=== PATIENT | male | born 1960 | race Caucasian/White ===

== ENCOUNTER 2019-09-19 20:09 | Inpatient (IN) ==
[2019-09-19] MEDS ORDERED: DUONEB (A & A) INH ONE ×2 (20:36→21:00)
[2019-09-19 20:51] LABS: BASO# 0.02 X1000 (0.0-0.2); BASO% 0.2 % (0.0-0.8); HEMATOCRIT 42.4 % (42.0-52.0); HEMOGLOBIN 13.9 g/dL (14.0-18.0); IMM GRAN# 0.04 X1000 (0.0-0.04); IMM GRAN% 0.4 % (0.0-0.5); LYMPH# 1.16 X1000 (1.2-3.4); LYMPH% 11.5 % (20.5-51.1); MCH 28.4 PG (27-31); MCHC 32.8 g/dL (33-37); MCV 86.7 FL (81-99); MONO# 0.37 X1000 (0.11-0.59); MONO% 3.7 % (1.7-9.3); MPV 11.1 FL (7.4-10.4); NEUT# 8.49 X1000 (1.4-6.5); NEUT% 84.2 % (42.2-75.2); PLT 181 X1000 (130-400); RBC 4.89 XMIL (4.7-6.1); RDW 13.7 % (11.5-14.5); WBC 10.08 X1000 (4.8-10.8)
[2019-09-19] MEDS ORDERED: DUONEB (A & A) ONE (20:51)
[2019-09-19] MEDS ORDERED: NS 1,000 ML IV ONE ×2 (20:55→22:06)
[2019-09-19 21:03] LABS: INR 1.1; PROTIME 14.8 Seconds (11.0-16.0)
[2019-09-19] MEDS ORDERED: TYLENOL PO ONE (21:03)
[2019-09-19 21:04] LABS: PTT 37.3 Seconds (22.3-41.8)
[2019-09-19 21:08] LABS: ALBUMIN 3.7 g/dL (3.5-5.0); CALCIUM 8.2 mg/dL (8.8-10.2); CREATININE 1.8 mg/dL (0.7-1.2); MAGNESIUM 1.8 mg/dL (1.5-2.7); POTASSIUM 3.3 mmol/L (3.5-5.1); TOTAL BILIRUBIN 0.3 mg/dL (0.20-1.00); TOTAL PROTEIN 7.2 g/dL (6.3-8.3)
[2019-09-19 21:15] LABS: BE 4.6 mmoll (-3.0-3.0); BLOOD TYPE ARTERIAL; HCO3-(ACT) 28.3 mmoll (20.0-26.0); O2(CT) 18.1 mL/dL (15.0-23.0); PCO2(98.6) 42 mmHg (35-45); PO2(98.6) 52 mmHg (60-100); SAMPLE BLOOD; SAO2 91.6 % (95.0-100.0); THB 14.5 g/dL (11.5-17.4); pH(98.6) 7.45 (7.35-7.45)
[2019-09-19 21:18] LABS: ALLEN TEST YES; MODALITY VENTIMASK
[2019-09-19 21:27] LABS: CK INDEX 1.2 (0.0-2.5); CK-MB 14.33 ng/mL (0.0-5.0)
[2019-09-19] MEDS ORDERED: LASIX IV ONE (21:32)
[2019-09-19] MEDS: ZOSYN 4.5 GM in NS 100 ML IV ONE ×2 (21:42)
[2019-09-19] MEDS ORDERED: VANCOMYCIN 1 GM/NS 1 GM/250 ML IVPB IV ONE (21:42)
[2019-09-19] MEDS ORDERED: TAMIFLU PO ONE (22:03)
[2019-09-19 22:18] LABS: HEMOGLOBIN A1C 7.5 % (4.8-6.0)
--- NOTE | 2019-09-19 22:34 | Diag Imaging Result Doc PS360 ---
CHEST-1 VIEW - 09/19/2019 INDICATION: SOB COMPARISON: 04/14/2015 FINDINGS: There is extensive bilateral alveolar infiltrate. This is worst in the lung bases. Heart size is normal. No pneumothorax or pleural effusion. IMPRESSION: Extensive bilateral pneumonia. Electronically signed by Edmond Howard 09/19/2019 10:32 PM
--- NOTE | 2019-09-19 23:03 | PROVIDER DOCUMENTATION ---
This chart was entered by Belen Cohen Scribe, acting as scribe for Vivian Benitez MD. HPI-Respiratory General - General Chief Complaint: Shortness of Breath Stated Complaint: SOB Time Seen by Provider: 09/19/19 20:23 Source: patient Allergies/Adverse Reactions: Patient Allergies Allergy/AdvReac Type Severity Reaction Status Date / Time Penicillins Allergy Unknown Verified 09/19/19 20:20 Home Medications: Home Medication List Medication Instructions Recorded Confirmed Last Taken Type Clonidine [Catapres] 0.1 mg PO HS 08/10/14 09/19/19 04/13/15 21:00 History 0.1 mg Metoprolol [Lopressor] 50 mg PO HS 08/10/14 09/19/19 04/13/15 21:00 History 50 mg Paroxetine HCl [Paxil] 20 mg PO HS 08/10/14 04/14/15 04/13/15 21:00 History 20 mg Phenytoin [Dilantin] 300 mg PO QHS 08/10/14 04/14/15 08/10/14 History Clonazepam [Klonopin] 1 mg PO TID 04/14/15 09/19/19 04/13/15 21:00 History Aripiprazole 15 mg PO DAILY 09/19/19 09/19/19 Unknown History Dextroamphetamine/Amphetamine 20 mg PO TID 09/19/19 09/19/19 Unknown History [Dextroamp-Amphetamin 20 mg Tab] Duloxetine [Cymbalta] 60 mg PO BID 09/19/19 09/19/19 Unknown History Gabapentin 600 mg PO TID 09/19/19 09/19/19 Unknown History Insulin Glargine,Hum.rec.anlog 100 units SUBQ QHS 09/19/19 09/19/19 Unknown History [Lantus Solostar] Insulin Glulisine [Apidra Solostar] 25 units SQ AC 09/19/19 09/19/19 Unknown History - History of Present Illness-Resp Nature of Presenting Problem: pt is a 59 yowm presenting w/ to er w/cc sob starting tonight w/cough, moore, fever, sore throat, cp w/cough and vomiting 2-3x today. pt tested positive for flu today. pt was 74% o2 sat in room. no dizziness. no copd, PNU, asthma hx. has hx of htn, dm, neuropathy and depression. allergy to penicillin. pt was sick with flu. Severity in ED: reports: mild Onset/Duration: reports: this evening (sob unsure when other symptoms started) Timing: reports: still present Exposure: reports: unknown cause Cough Quality/Degree: reports: mild Modifying Factors: improves with: nothing Associated Symptoms: reports: chest pain/soreness, cough, flu-like symptoms, headache, short of breath Recently seen or treated by another doctor?: Yes (+flu today) Review of Systems - Adult - REVIEW OF SYSTEMS - ADULT Constitutional: reports: see HPI, fever. denies: chills, night sweats Eyes: reports: no symptoms reported Ears, Nose, Mouth & Throat: reports: see HPI, throat pain. denies: ear discharge, ear pain, sinus problem Cardiovascular: reports: see HPI, chest pain (w/cough) Respiratory: reports: see HPI, cough, shortness of breath. denies: hemoptysis, pleurisy, wheezing Gastrointestinal: reports: see HPI, vomiting. denies: abdominal pain, hematemesis, diarrhea Genitourinary: reports: no symptoms reported Musculoskeletal: reports: no symptoms reported Integumentary: reports: no symptoms reported Neurological: reports: see HPI, headache/migraines. denies: ataxia, dizziness/vertigo, loss of balance Psychiatric: reports: no symptoms reported Endocrine: reports: no symptoms reported Hematologic/Lymphatic: reports: no symptoms reported Allergic/Immunologic: reports: no symptoms reported All Other Systems: Reviewed and Negative Past History - Adult - PAST MEDICAL HISTORY-ADULT Review of Records: reports: Nursing Assessment Review, Medications Reviewed, Social history reviewed & non-contributory. Major Childhood Illnesses: reports: denies history Cardiovascular: reports: HTN, hyperlipidemia Respiratory: reports: sleep apnea Gastrointestinal: reports: denies history Obstetrical/Gynecological: reports: denies history Genitourinary: reports: denies history Musculoskeletal: reports: denies history Neurological: reports: Seizures/Epilepsy Endocrine/Immune: reports: Diabetes Other Conditions: reports: denies history - PRIOR SURGERIES/PROCEDURES Surgical/Procedure History: reports: back/neck (neck) - IMMUNIZATION STATUS Childhood Immunizations: See Nurse Assessment Flu Vaccine: See Nurse Assessment - FAMILY HISTORY Family History: reviewed, not pertinent - SOCIAL HISTORY Smoking: other (former smoker) Substance Use: none/never Physical Exam-General - PHYSICAL EXAM-ADULT Initial Vital Signs Reviewed: Yes - CONSTITUTIONAL General Appearance: alert, no apparent distress. negative: lethargic, slow to respond, obtunded - EYES Eyes: PERRL/EOMI, pink conjunctivae - HEAD, EARS, NOSE, MOUTH & THROAT HENMT: normocephalic/atraumatic. negative: moist mucous membranes (dry muc mem) - NECK Neck: non-tender, full range of motion, supple, normal inspection - RESPIRATORY Respiratory: chest non-tender, lungs clear, normal breath sounds, no pleuratic chest pain, no respiratory distress, no accessory muscle use. negative: stridor, wheezing, dull on percussion, prolonged expiration - CARDIOVASCULAR Cardiovascular: normal peripheral pulses, no edema, no gallop, no JVD, no murmur , tachycardia. negative: regular rate, rhythm, bradycardia, friction rub, irregularly irregular - GASTROINTESTINAL (ABDOMEN) Abdominal Exam: normal bowel sounds, non tender, soft, no organomegaly, no pulsatile mass. negative: guarding, rigid, rebound, tenderness - MUSCULOSKELETAL Back Exam: normal inspection Extremity: normal range of motion, non-tender, normal inspection Peripheral Pulses: radial (R): 2+, radial (L): 2+ - SKIN Integumentary: normal color, normal turgor, warm/dry - NEUROLOGIC Neurologic: grossly normal, no motor/sensory deficits - PSYCHIATRIC Psych/Mental Status: normal mood/affect, normal thought content, normal thought process, oriented x 3 - HEART Score HEART Score: History: Moderately Suspicious HEART Score: ECG: Non-Specific Repolarization Disturbance/LBBB/PM HEART Score: Age: 45-65 Years HEART Score: Risk Factors for Atherosclerotic Disease: 1 or 2 Risk Factors HEART Score: Troponin: 1-3x Normal Limit Total HEART Score:: 5 Progress - PLAN OF CARE/RESULTS Progress/Plan/Lab Results: Vital Signs - 8 hr 09/19/19 20:16 09/19/19 20:46 09/19/19 21:18 Temperature 102.5 F H Pulse Rate 107 H 99 H 106 H Respiratory Rate 20 26 H 28 H Blood Pressure 224/110 216/97 O2 Sat by Pulse Oximetry 74 L 87 L Laboratory Results - last 24 hr 09/19/19 09/19/19 09/19/19 20:27 20:27 20:27 WBC 10.08 RBC 4.89 Hgb 13.9 L Hct 42.4 MCV 86.7 MCH 28.4 MCHC 32.8 L RDW Std Deviation 13.7 Plt Count 181 MPV 11.1 H Immature Gran % (Auto) 0.4 Neut % (Auto) 84.2 H Lymph % (Auto) 11.5 L [place] % (Auto) 3.7 Eos % (Auto) 0.0 Baso % (Auto) 0.2 Immature Gran # (Auto) 0.04 Neut # (Auto) 8.49 H Lymph # (Auto) 1.16 L [place] # (Auto) 0.37 Eos # (Auto) 0.00 Baso # (Auto) 0.02 PT INR PTT (Actin FS) Specimen Type Sample Site pH pCO2 pO2 HCO3 Base Excess Oxyhemoglobin ABG O2 Sat (Calculated) ABG O2 Saturation ABG Carboxyhemoglobin ABG Methemoglobin Bill Test A-a O2 Difference Total Hemoglobin Lactate Blood Gas Modality FiO2 % Sodium 139 Potassium 3.3 L Chloride 98 Carbon Dioxide 24 L Anion Gap 18 BUN 21 Creatinine 1.8 H Estimated GFR/1.73 m2 39 BUN/Creatinine Ratio 12 Glucose 229 H Estimat Average Glucose Hemoglobin A1c Calculated Osmolality 288 Calcium 8.2 L Magnesium 1.8 Total Bilirubin 0.30 AST 58 H ALT 26 Alkaline Phosphatase 89 Creatine Kinase 1182 H Creatine Kinase Index 1.2 CK-MB (CK-2) 14.33 H Troponin T Jma-A-Gcrezphyemg Pept 2586 H Total Protein 7.2 Albumin 3.7 Globulin 4.0 Albumin/Globulin Ratio 1.0 Plasma Lactate Total Phenytoin 09/19/19 09/19/19 09/19/19 20:27 20:27 20:27 WBC RBC Hgb Hct MCV MCH MCHC RDW Std Deviation Plt Count MPV Immature Gran % (Auto) Neut % (Auto) Lymph % (Auto) [place] % (Auto) Eos % (Auto) Baso % (Auto) Immature Gran # (Auto) Neut # (Auto) Lymph # (Auto) [place] # (Auto) Eos # (Auto) Baso # (Auto) PT 14.8 INR 1.10 PTT (Actin FS) 37.3 Specimen Type Sample Site pH pCO2 pO2 HCO3 Base Excess Oxyhemoglobin ABG O2 Sat (Calculated) ABG O2 Saturation ABG Carboxyhemoglobin ABG Methemoglobin Bill Test A-a O2 Difference Total Hemoglobin Lactate Blood Gas Modality FiO2 % Sodium Potassium Chloride Carbon Dioxide Anion Gap BUN Creatinine Estimated GFR/1.73 m2 BUN/Creatinine Ratio Glucose Estimat Average Glucose Hemoglobin A1c Calculated Osmolality Calcium Magnesium Total Bilirubin AST ALT Alkaline Phosphatase Creatine Kinase Creatine Kinase Index CK-MB (CK-2) Troponin T 0.294 H Gwu-I-Dolacfcekxz Pept Total Protein Albumin Globulin Albumin/Globulin Ratio Plasma Lactate 3.9 H Total Phenytoin 09/19/19 09/19/19 09/19/19 20:27 20:27 20:50 WBC RBC Hgb Hct MCV MCH MCHC RDW Std Deviation Plt Count MPV Immature Gran % (Auto) Neut % (Auto) Lymph % (Auto) [place] % (Auto) Eos % (Auto) Baso % (Auto) Immature Gran # (Auto) Neut # (Auto) Lymph # (Auto) [place] # (Auto) Eos # (Auto) Baso # (Auto) PT INR PTT (Actin FS) Specimen Type ARTERIAL Sample Site L RADIAL pH 7.45 pCO2 42 pO2 52 L HCO3 28.3 H Base Excess 4.6 H Oxyhemoglobin 89.0 L* ABG O2 Sat (Calculated) 18.1 ABG O2 Saturation 91.6 L ABG Carboxyhemoglobin 1.90 ABG Methemoglobin 1.0 Bill Test YES A-a O2 Difference 252.0 Total Hemoglobin 14.5 Lactate 2.00 Blood Gas Modality VENTIMASK FiO2 % 50.0 Sodium Potassium Chloride Carbon Dioxide Anion Gap BUN Creatinine Estimated GFR/1.73 m2 BUN/Creatinine Ratio Glucose Estimat Average Glucose 169 Hemoglobin A1c 7.5 H Calculated Osmolality Calcium Magnesium Total Bilirubin AST ALT Alkaline Phosphatase Creatine Kinase Creatine Kinase Index CK-MB (CK-2) Troponin T Cug-A-Ixmuldbaffz Pept Total Protein Albumin Globulin Albumin/Globulin Ratio Plasma Lactate Total Phenytoin < 0.80 L Orders Category Date Time Status Admit - [facility] Routine AdmDCTranf 09/19/19 21:45 Active Cardiac Monitoring DIRECTED Care 09/19/19 20:34 Active IV Insertion ORDERED Care 09/19/19 20:34 Completed Notify MD of + Sepsis Screen NOW Care 09/19/19 20:34 Active Notify Physician As Ordered Care 09/19/19 20:34 Active Update & Confirm Home Medicati ROUTINE Care 09/19/19 21:48 Active CHEST-1 VIEW [RAD] Stat Exams 09/19/19 20:34 Completed A1C HGB W EST AVG GLUCOSE [CHEM] Routine Lab 09/19/19 20:27 Completed ABG [RESP] Routine Lab 09/19/19 20:50 Completed BLOOD CULTURE [BLDCUL] Stat Lab 09/19/19 20:27 Results CBC WITH DIFF [HEME] Stat Lab 09/19/19 20:27 Completed CK PROFILE [SP CHEM] Stat Lab 09/19/19 20:27 Completed COMPREHENSIVE METABOLIC PANEL [CHEM] Stat Lab 09/19/19 20:27 Completed Dilantin [PHENYTOIN] [TDM] Stat Lab 09/19/19 20:27 Completed LACTATE, PLASMA [CHEM] Lab 09/19/19 20:27 Completed LACTATE, PLASMA [CHEM] Lab 09/19/19 23:45 Uncollected LACTATE, PLASMA [CHEM] Lab 09/20/19 02:45 Uncollected MAGNESIUM [CHEM] Stat Lab 09/19/19 20:27 Completed PRO B-NATRIURETIC PEPTIDE Stat Lab 09/19/19 20:27 Completed PROTIME WITH INR [COAG] Stat Lab 09/19/19 20:27 Completed PTT [COAG] Stat Lab 09/19/19 20:27 Completed TROPONIN T Stat Lab 09/19/19 20:27 Completed URINALYSIS W/POSS RFLX CULT [URINALYSIS] Stat Lab 09/19/19 22:39 Ordered 0.9% Sodium Chloride Inj [Ns] 1,000 ml Med 09/19/19 20:55 Discontinued IV 999 mls/hr 0.9% Sodium Chloride Inj [Ns] 1,000 ml Med 09/19/19 22:06 Active IV 999 mls/hr Acetaminophen [Tylenol] Med 09/19/19 21:03 Discontinued 1,000 mg PO NOW ONE Albuterol 2.5MG/Ipratrop 0.5MG [Duoneb (A & A)] Med 09/19/19 20:36 Discontinued 3 ml INH NOW ONE Albuterol 2.5MG/Ipratrop 0.5MG [Duoneb (A & A)] Med 09/19/19 21:00 Discontinued 6 ml INH NOW ONE Albuterol 2.5MG/Ipratrop 0.5MG [Duoneb (A & A)] Med 09/19/19 20:51 Discontinued 9 ml .ROUTE .STK-MED ONE Furosemide [Lasix] Med 09/19/19 21:32 Discontinued 40 mg IV NOW ONE Hydralazine [Apresoline] Med 09/19/19 22:06 Active 10 mg IV Q6H PRN PRN Morphine Med 09/19/19 22:07 Active 2 mg IV Q4H PRN PRN Oseltamivir [Tamiflu] Med 09/20/19 09:00 Active 75 mg PO BID Oseltamivir [Tamiflu] Med 09/19/19 22:03 Discontinued 75 mg PO NOW ONE Piperacillin/Tazobactam [Zosyn] 4.5 gm Med 09/19/19 21:42 Discontinued 0.9% Sodium Chloride Inj [Ns] 100 ml IV NOW Vancomycin 1 gm/Ns Med 09/19/19 21:42 Discontinued 1 gm in 250 ml IV NOW Aerosol Treatments Routine Oth 09/19/19 20:36 Completed Aerosol Treatments Routine Oth 09/19/19 21:00 Completed Aerosol Treatments Stat Oth 09/19/19 20:36 Completed Aerosol Treatments Stat Oth 09/19/19 21:00 Completed Oxygen Device Stat Oth 09/19/19 20:34 Completed Transfer/Admit Order [TRANSFER] Routine Transfer 09/19/19 21:45 Ordered Result Diagrams: 09/19/19 20:27 09/19/19 20:27 - REASSESSMENT Reassessment #1 Time Reassessed: 21:25 Status: improving - EKG 1 Time of EKG reading by physician:: 20:30 EKG Read and Signed by:: Vivian Benitez EKG Interpretation (*Must complete 3 of following elements*): Abnormal Rate: 99 (possible left atrial enlargement ) Rhythm: NSR [place]: normal QRS: normal SC Interval: normal ST Wave: non-specific ST changes (Marked ST abnormality, possible anterior subendoca) Comments: nonspecific intraventricular block - XRAY 1 XRAY Study: Chest Impression: Abnormal (bilateral infiltrates and Pulmonary edema), See EMR Report - CONSULTS/PCP/HOSPITALIST Notification #1 *Consult/PCP/Hospitalist*: d/w Dr Salvador Time Discussed: 21:45 Consult Disposition: Admit Departure - Departure Date of Disposition Decision: 09/19/19 Time of Disposition Decision: 22:04 DIAGNOSIS: Sepsis, Pneumonia, CHF (congestive heart failure), HOMERO (acute kidney injury), Influenza, Elevated troponin Disposition: ADMITTED INPATIENT 09 Certified Medical Emergency: Emergent Condition: Stable Referrals and Follow-Ups: Balaji Grey MD [Primary Care Provider] - - Critical Care Note This patient required my direct & personal management of CC.: Yes Total Time (mins): 40 Critical Care Statement: This patient required my direct personal management to treat or rule out processes, the absence of which, could potentiallly result in sudden, clinically significant life or limb threatening deterioration. Attestation - Physician/ GABRIELLE Attestation Patient care was provided by Advanced Practice Provider:: No The physician spent face to face time with patient:: Yes Advanced Practice Provider documentation review:: Supervising physician onsite and consulted in the evaluation and care of this patient. The physician did have a face to face encounter with the patient. This chart was documented by the indicated scribe, (Belen Cohen, Mohan) and accurately reflects the services I performed and decisions made by me, Vivian Benitez MD, as attested by the provider's signature.
[2019-09-19] MEDS: APRESOLINE IV PRN (23:07)
[2019-09-20] MEDS ORDERED: LEVAQUIN 750 MG in NS 150 ML IV SCH (01:00)
[2019-09-20] MEDS: HEPARIN SUBQ SCH ×4 (01:05→23:59)
[2019-09-20] MEDS: MORPHINE IV PRN ×4 (01:57→15:26)
[2019-09-20 03:09] LABS: URINE SOURCE CLEAN CATCH
[2019-09-20 03:15] LABS: CK INDEX 1.2 (0.0-2.5); CK-MB 15.48 ng/mL (0.0-5.0)
[2019-09-20 03:25] LABS: BILIRUBIN URINE NEGATIVE (NEGATIVE); BLOOD URINE MODERATE (NEGATIVE); COLOR STRAW; GLUCOSE URINE 200 mg/dL (NEGATIVE); KETONE URINE NEGATIVE (NEGATIVE); LEUKOCYTES URINE NEGATIVE (NEGATIVE); NITRITE URINE NEGATIVE (NEGATIVE); PH URINE 6.5; PROTEIN URINE 100 mg/dL (NEGATIVE); SP GRAVITY URINE 1.008; TURBIDITY URINE CLEAR (CLEAR); UR EPITHELIAL CELLS <10 /HPF (<10); URINE BACTERIA NEGATIVE /HPF; URINE RBC <10 /HPF (<10); URINE WBC <10 /HPF (<10); UROBILINOGEN URINE NORMAL (NORMAL)
[2019-09-20 04:35] LABS: ALLEN TEST YES; BE 6.3 mmoll (-3.0-3.0); BLOOD TYPE ARTERIAL; HCO3-(ACT) 29.8 mmoll (20.0-26.0); METHB 1.1 % (0.0-1.5); O2HB 96.2 % (95.0-99.0); PCO2(98.6) 47 mmHg (35-45); PO2(98.6) 99 mmHg (60-100); SAMPLE BLOOD; SAO2 98.6 % (95.0-100.0); THB 18.5 g/dL (11.5-17.4); pH(98.6) 7.44 (7.35-7.45)
[2019-09-20 04:36] LABS: MODALITY VENTIMASK
[2019-09-20] MEDS: DUONEB (A & A) INH SCH ×5 (04:52→22:56)
[2019-09-20] MEDS: APRESOLINE IV PRN (05:07)
[2019-09-20] MEDS ORDERED: KLOR-CON PO ONE (05:37)
[2019-09-20 06:21] LABS: CALCIUM 7.8 mg/dL (8.8-10.2); CREATININE 1.7 mg/dL (0.7-1.2); POTASSIUM 3.4 mmol/L (3.5-5.1)
[2019-09-20 06:48] LABS: BASO# 0.02 X1000 (0.0-0.2); BASO% 0.2 % (0.0-0.8); HEMATOCRIT 44.5 % (42.0-52.0); HEMOGLOBIN 14.4 g/dL (14.0-18.0); IMM GRAN# 0.04 X1000 (0.0-0.04); IMM GRAN% 0.4 % (0.0-0.5); LYMPH# 1.08 X1000 (1.2-3.4); LYMPH% 11.2 % (20.5-51.1); MCH 28.2 PG (27-31); MCHC 32.4 g/dL (33-37); MCV 87.3 FL (81-99); MONO# 0.34 X1000 (0.11-0.59); MONO% 3.5 % (1.7-9.3); MPV 11.2 FL (7.4-10.4); NEUT# 8.15 X1000 (1.4-6.5); NEUT% 84.7 % (42.2-75.2); PLT 157 X1000 (130-400); RDW 13.9 % (11.5-14.5); WBC 9.63 X1000 (4.8-10.8)
--- NOTE | 2019-09-20 06:49 | HISTORY AND PHYSICAL ---
CHIEF COMPLAINT: Cough. Shortness of breath, flu positive. HPI: This is a 59-year-old male who presents to the emergency room tonight stating that he has had increasing cough, headache, fever, sore throat and vomiting 2-3 times today. He tested positive for flu today at his family care doctor. He has had increasing shortness of breath over the last couple of days. Has a history of hypertension, diabetes mellitus type 2, neuropathy and depression. His was with him in the emergency room, who is also sick with the flu. At any rate, a chest x-ray was obtained which showed extensive bilateral pneumonia. He will be admitted and transferred to [facility] ICU for further evaluation and treatment. PAST MEDICAL HISTORY: See HPI. Seizure disorder. PREVIOUS SURGICAL HISTORY: Neck surgery as well as tonsillectomy. SOCIAL HISTORY: No tobacco, alcohol, or illicit drugs. Lives at home with his family. FAMILY HISTORY: Father from lung cancer. Denies any other chronic illnesses in his family other than his mother having hypertension. ALLERGIES: PENICILLIN. HOME MEDICATIONS: 1. Abilify 7.5 mg p.o. at bedtime. 2. Aripiprazole 15 mg p.o. daily. 3. Klonopin 1 mg p.o. t.i.d. 4. Catapres 0.1 mg p.o. at bedtime. 5. Dextroamphetamine/amphetamine 20 mg p.o. t.i.d. 6. Cymbalta 60 mg p.o. b.i.d. 7. Neurontin 600 mg p.o. t.i.d. 8. Lantus 100 mg subcutaneously at bedtime. 9. 25 units subcutaneously before meals. 10. Metoprolol 15 mg p.o. at bedtime. REVIEW OF SYSTEMS: A 14-point review of systems conducted with the patient. Pertinent positives listed above in the HPI. All other systems reviewed and found to be negative. PHYSICAL EXAMINATION: VITAL SIGNS: Temperature 98.4, pulse 90, respirations 16, blood pressure 191/102, oxygen saturation 96% on 40% Ventimask. GENERAL: Well-developed, well-nourished 59-year-old male lying on the ICU bed. Is alert and oriented x3, in no acute distress. HEENT: Head is atraumatic, normocephalic. Pupils equal, round, react to light. Extraocular eye movements intact. Sclera anicteric. Conjunctiva pink. Oral mucosa is dry. NECK: Supple. No JVD. No thyromegaly. Trachea is midline. No cervical lymphadenopathy. CARDIAC: S1, S2 appreciated. No murmurs, gallops, rubs. LUNGS: Scattered rhonchi noted throughout bilateral lung joaquin. No wheezes, no rales. Symmetric rise and fall respirations. ABDOMEN: Soft, nondistended, nontender. Bowel sounds present all 4 quadrants. Normoactive. No pulsatile mass. No organomegaly. EXTREMITIES: No clubbing, cyanosis or edema. 2+ pedal pulse bilaterally. GENITOURINARY: No bladder distention. Patient voids. Otherwise deferred. NEUROLOGICAL: Alert and oriented x3. Cranial nerves 2-12 grossly intact. DIAGNOSTIC DATA: Chest x-ray shows extensive bilateral pneumonia. He was found to be flu positive at his primary care provider. LABORATORY DATA: CBC within normal limits. Coags within normal limits. ABG pH 7.45, pCO2 42, pO2 52, bicarb 28.3. This was on 50% Ventimask. Sodium 139, potassium 3.3, chloride 98, carbon dioxide 24, BUN 21, creatinine 1.8, glucose 229. CK 1182. Troponin 0.294. ASSESSMENT AND PLAN: 1. Influenza. 2. Extensive bilateral pneumonia. 3. Hypoxic respiratory failure. 4. Acute kidney injury. 5. Diabetes mellitus type 2 with hyperglycemia. 6. Fluid volume depletion. PLAN: Admit patient to ICU. Tamiflu 75 mg p.o. b.i.d. Levaquin and Rocephin IV q.24h. Fingerstick blood sugars with sliding scale insulin at before meals and bedtime. Will hold his long-acting insulin at this time. Normal saline at 75 mL an hour. He was given 2L boluses, I believe, in the emergency room. Will trend cardiac enzymes. Consult Cardiology related to elevated troponin. Echocardiogram tomorrow morning. Heparin 5000 units subcutaneously q.8h. for VT prophylaxis. Hydralazine 10 mg IV q.6h. as needed for hypertension. Continue home medication. Further recommendations per patient's clinical course. Dictated by TONY Leroy for Doc Salvador MD cc: TONY Leroy, MD Patient presenting with cough, shortness of breath and history of positive flu. CXR pos for infiltrates. I agree with the assessment and plan of the TONY. Dr. Salvador. [facility]
[2019-09-20] MEDS ORDERED: HUMALOG SUBQ SCH (07:00)
[2019-09-20] MEDS ORDERED: VANCOMYCIN IV PER PHARMACY MISC SCH (07:15)
[2019-09-20] MEDS: ABILIFY PO SCH ×2 (08:10→20:03)
[2019-09-20] MEDS: TAMIFLU PO SCH ×2 (08:10→20:04)
[2019-09-20] MEDS: KLONOPIN PO SCH ×3 (08:10→20:06)
[2019-09-20] MEDS: NEURONTIN PO SCH ×3 (08:13→20:06)
[2019-09-20] MEDS ORDERED: LABETALOL IV PRN (08:28)
[2019-09-20] MEDS: LOPRESSOR PO SCH ×2 (08:37→20:04)
[2019-09-20] MEDS: NORVASC PO SCH ×2 (08:37→20:04)
[2019-09-20] MEDS ORDERED: CYMBALTA PO SCH (09:00)
[2019-09-20] MEDS ORDERED: VANCOMYCIN 1,800 MG in NS 250 ML IV SCH (09:00)
[2019-09-20] MEDS ORDERED: ROCEPHIN 1 GM in NS 50 ML IV SCH (09:00)
[2019-09-20] MEDS: ZYVOX 600 MG/D5W 600 MG/300 ML IVPB IV SCH ×2 (09:01→21:00)
--- NOTE | 2019-09-20 09:13 | Diag Imaging Result Doc PS360 ---
CHEST-PORTABLE - 09/20/2019 INDICATION: Pneumonia COMPARISON: 09/19/2019 FINDINGS: There is no significant change in the extensive bilateral heterogeneous infiltrates. Heart size is normal. No pneumothorax or pleural effusion. IMPRESSION: No change from prior. Electronically signed by Edmond Howard 09/20/2019 9:11 AM
[2019-09-20] MEDS: AZACTAM 1 GM in NS 50 ML IV SCH ×3 (09:14→23:59)
[2019-09-20 09:16] LABS: CK INDEX 0.9 (0.0-2.5); CK-MB 15.59 ng/mL (0.0-5.0)
--- NOTE | 2019-09-20 09:45 | EKG Report ---
Test Performed on : 09/20/2019 09:42:12 AM Test Reason : elevated troponin Blood Pressure : / mmHG Vent. Rate : 093 BPM Atrial Rate : 093 BPM P-R Int : 170 ms QRS Dur : 126 ms QT Int : 444 ms P-R-T Axes : 017 055 068 degrees QTc Int : 552 ms Normal sinus rhythm. Nonspecific intraventricular block T wave abnormality, consider anterolateral ischemia Abnormal ECG When compared with ECG of 19-SEP-2019 20:30, (Unconfirmed) T wave inversion now evident in Anterolateral leads Confirmed by Kaye GOLDSTEIN, Brooks ([id number]) on 09/21/2019 10:35:26 AM
[2019-09-20] MEDS: HUMULIN R SUBQ SCH ×2 (11:00→15:39)
--- NOTE | 2019-09-20 11:32 | CARDIOLOGY CONSULTATION ---
DATE: 09/20/2019 REASON FOR CONSULTATION: Cardiology was consulted for abnormal cardiac enzymes. The patient is admitted with pneumonia and flu. HISTORY OF PRESENT ILLNESS: Mr. Saravia is a 59-year-old gentleman who came to the emergency room with increasing cough, headaches, fever, sore throat and vomiting prior to admission. He has thrown up a couple of times. His had flu a couple of days back. With increasing and worsening symptoms, he went to emergent care, was noted to have positive for influenza type A. His oxygen saturations at home worsened to less than 80 and he was brought to the emergency room. Chest x-ray revealed bilateral pneumonia. He was admitted and transferred to [facility] for further evaluation. From a cardiac standpoint, no previous recent cardiac history. As a child he had rheumatic fever. Prior to this, there is no exertional component of chest pain or worsening shortness of breath. He is followed by Dr. Balaji Grey and [facility] and they are not aware of having any abnormal renal function either. Associated with these symptoms of progressive shortness of breath, there was no chest pain suggestive of angina. There is no history of palpitations. There is no dizziness or syncope. REVIEW OF SYSTEM: A 14-point review of systems was done. GI System: There is no history of hematemesis or melena. Central nervous system: No focal weakness to suggest a CVA or TIA. Genitourinary System: There is no dysuria or hematuria. PAST MEDICAL HISTORY: Diabetes, hypertension, psychotic disorder, seizure disorder. HOME MEDICATIONS: Include clonidine 0.1 mg p.o. at bedtime, metoprolol 50 mg daily, Klonopin 1 mg p.o. t.i.d., dextroamphetamine 20 mg tablets p.o. 3 times a day, duloxetine 60 mg b.i.d., insulin 100 mg subcutaneous at bedtime, gabapentin 600 mg t.i.d., regular insulin as directed, Abilify 7.5 mg p.o. at bedtime. ALLERGIES: He is allergic to penicillin. SOCIAL HISTORY: He does not smoke or drink. PAST SURGICAL HISTORY: Includes neck surgery as well as tonsillectomy. PHYSICAL EXAMINATION: Vital signs: When he came to the emergency room, blood pressure was 190/100, today blood pressure 169/100. Neck: Jugular venous pressure was normal. Cardiovascular: First and second heart sounds were heard. There was no S3 gallop. Respiratory System: Scattered expiratory rhonchi bilaterally. Abdomen: Soft, nontender. There was no guarding or rigidity. Bowel sounds were heard. Central nervous system: Alert and oriented. Was moving all 4 extremities. Extremities: Peripheral pulses palpable. There was trace edema. IMAGING: Chest x-ray, bilateral pneumonia. Was positive for flu. LABORATORY DATA: 1. Sodium 140, potassium 3.4, BUN 19, creatinine 1.7, calcium 7.8. 2. Troponin on admission was 0.294. Subsequent troponin was 0.394 and 0.435. 3. Electrocardiogram revealed normal sinus rhythm with nonspecific ST-T changes with ST depression and T inversion in the lateral leads and anterior leads. Compared to electrocardiogram done in 2015, T-wave inversion noted in the lateral leads. 4. WBC 9.63, hemoglobin 14.4, hematocrit 44.5, platelet count of 157,000. ASSESSMENT AND PLAN: Mr. Shankar Saravia is a 59-year-old gentleman with history of hypertension, diabetes, seizure disorder, psychiatric disorder, comes with complaints of having had fevers, chills and worsening shortness of breath. Has tested positive for influenza A and chest x-ray revealed bilateral pneumonia. He, from a cardiac standpoint, denies any chest pain. No previous recent cardiac history either. As a child he has had rheumatic fever. PLAN: 1. We will get an echocardiogram to assess cardiac and valvular function. 2. He has abnormal troponin with EKG changes, with abnormal renal function. Subtle difference from previous electrocardiogram done in 2015. This is likely to be a type 2 myocardial infarction. He is not having any symptoms at the present time. He is on aspirin and IV heparin. I have not made any changes. We will get serial cardiac enzymes, 3 more sets of troponin to see the trend. 3. His blood pressure was elevated when he came in. He is currently on metoprolol 50 mg which has been increased to b.i.d. and Norvasc as well. Would recommend continuing the current medications. 4. As far as further cardiac workup is concerned, we will await until his pneumonia and flu clears up for minimum of 5 days and plan for further cardiac testing during this hospitalization. If he has significant LV dysfunction, we will plan for a left heart catheterization. However, if his LV function is normal and there is no significant change in troponin, we will decide on whether to pursue noninvasive testing during this hospitalization and/or directly proceed with cardiac catheterization. We will update depending on his hospital course and further testing. Thank you for the consult. cc: MD MARIANNA Sanchez
--- NOTE | 2019-09-20 16:45 | ECHO REPORT ---
ORDER DATE: 09/20/2019 ECHOCARDIOGRAPHIC MEASUREMENTS: 1. Interventricular septum 1.4 2. Left ventricular posterior wall 1.5. 3. Diastolic diameter 3.8. 4. Left atrium 4. 5. Aorta 2.1. SUMMARY: 1. Technically suboptimal study. Poor acoustic window. 2. Aortic valve leaflets are trileaflet. 3. Pulmonic valve not well visualized. 4. Mitral valve was normal. 5. Tricuspid valve was normal. 6. There is mild mitral regurgitation. Peak velocity across the aortic valve less than 2 m/sec. 7. There is no aortic stenosis or regurgitation. 8. Normal left ventricular cavity size. Endocardium not well visualized in all views. Optison was used to assess left ventricular systolic function. 9. Normal left ventricular cavity size. 10. Concentric left ventricular hypertrophy. 11. Estimated ejection fraction of 60%. 12. There is prominent papillary muscles, no obvious intracardiac mass or thrombus seen cc: MD Galileo Sanchez CRNP MTDD
[2019-09-20 17:39] LABS: CK INDEX 0.8 (0.0-2.5); CK-MB 11.99 ng/mL (0.0-5.0)
--- NOTE | 2019-09-20 19:22 | PULMONOLOGY CONSULTATION ---
DATE: 09/20/2019 REQUESTING CLINICIAN: Yoli Morris MD REASON FOR CONSULTATION: Respiratory failure. HISTORY OF PRESENT ILLNESS: Mr. Saravia is a 59-year-old male with remote history of tobacco use, insulin-requiring diabetes mellitus, with long history of hypertension, who developed fevers, chills, body aches and a sore throat over the last 48 to 72 hours. His has also tested positive for the flu. The patient went to a walk-in clinic prior to coming to the emergency room and was diagnosed with influenza. He received 1 dose of Tamiflu. The patient's had a pulse oximeter after taking care of another family member with lung disease in the past, and his oxygen saturation was continuing decline and rate 74%. He currently is awake and alert. He is on supplemental oxygen. He has minimal work of breathing but is in no distress. PAST MEDICAL HISTORY: 1. Diabetes mellitus. 2. Hypertension. 3. Peripheral neuropathy. 4. Anxiety/depression disorder. 5. History of seizure disorder. 6. Status post tonsillectomy. 7. History of cervical spine surgery. SOCIAL HISTORY: The patient has a remote history of tobacco but none for several years. No alcohol use. FAMILY HISTORY: Noncontributory to current presentation. REVIEW OF SYSTEMS: As outlined in the HPI but is otherwise negative. PHYSICAL EXAMINATION: General: Reveals a well-developed, well-nourished male who appears his stated age on supplemental oxygen. Vital signs: Blood pressure 157/84, heart rate 83, respiratory rate 20, oxygen saturation 98%. HEENT: Pupils are equal and reactive. Oropharynx appears clear. Neck: Supple. Chest: Reveals crackles bilaterally. Cardiac Exam: S1, S2. Abdomen: Soft. Extremities: Without edema. LABORATORIES: Chest x-ray reveals diffuse bilateral infiltrates. Influenza screen is positive for influenza A. White blood count 10.08, hemoglobin 13.9, platelet count 181,000. Arterial blood gas reveals a pH 7.44, pCO2 of 47, pO2 of 99 on 50% face mask. Immunoglobulin levels are normal. IMPRESSION: A 59-year-old with: 1. Influenza A pneumonia. 2. Acute hypoxemic respiratory failure. 3. Type 2 myocardial ischemia. 4. Chronic renal insufficiency. 5. Mild hyperglycemia associated with diabetes mellitus. RECOMMENDATIONS: 1. Continue ICU management. Patient is critically ill and is at risk for decompensation. 2. Continue Tamiflu along with broad-spectrum antibiotics in the event he has a co-infection. We will rapidly taper antibiotics with clinical improvement. 3. Continue oxygen for hypoxemic respiratory failure. 4. Encouraged yearly influenza vaccines. The patient did not receive a vaccine this year. 5. Cardiac management per the Cardiology Service. cc: Paul Springer MD
[2019-09-20] MEDS: TYLENOL PO PRN (20:06)
[2019-09-20] MEDS ORDERED: CATAPRES PO SCH (21:00)
[2019-09-20] MEDS ORDERED: LOPRESSOR PO SCH (21:00)
[2019-09-21] MEDS: HUMULIN R SUBQ SCH ×5 (00:02→20:23)
[2019-09-21] MEDS: DUONEB (A & A) INH SCH ×4 (03:17→22:38)
[2019-09-21] MEDS: MORPHINE IV PRN ×3 (03:50→20:34)
[2019-09-21 04:34] LABS: ALLEN TEST YES; BE 8.2 mmoll (-3.0-3.0); BLOOD TYPE ARTERIAL; HCO3-(ACT) 31.3 mmoll (20.0-26.0); METHB 1.4 % (0.0-1.5); O2(CT) 20.4 mL/dL (15.0-23.0); O2HB 96.4 % (95.0-99.0); PCO2(98.6) 47 mmHg (35-45); PO2(98.6) 144 mmHg (60-100); SAMPLE BLOOD; SAO2 98.9 % (95.0-100.0); THB 14.9 g/dL (11.5-17.4); pH(98.6) 7.46 (7.35-7.45)
[2019-09-21 04:38] LABS: MODALITY BI PAP
[2019-09-21 06:32] LABS: BASO# 0.02 X1000 (0.0-0.2); BASO% 0.3 % (0.0-0.8); EOS# 0.13 X1000 (0.0-0.7); EOS% 1.8 % (0.0-10.0); HEMOGLOBIN 13.8 g/dL (14.0-18.0); IMM GRAN# 0.02 X1000 (0.0-0.04); IMM GRAN% 0.3 % (0.0-0.5); LYMPH# 1.73 X1000 (1.2-3.4); LYMPH% 24.4 % (20.5-51.1); MCH 28.6 PG (27-31); MCHC 32.1 g/dL (33-37); MONO# 0.37 X1000 (0.11-0.59); MONO% 5.2 % (1.7-9.3); MPV 11.7 FL (7.4-10.4); NEUT# 4.83 X1000 (1.4-6.5); PLT 165 X1000 (130-400); RBC 4.83 XMIL (4.7-6.1); RDW 14.1 % (11.5-14.5)
[2019-09-21 06:49] LABS: ALB/GLOB RATIO 0.7; ALBUMIN 2.7 g/dL (3.5-5.0); CALCIUM 8.2 mg/dL (8.8-10.2); CREATININE 1.7 mg/dL (0.7-1.2); TOTAL BILIRUBIN 0.27 mg/dL (0.20-1.00); TOTAL PROTEIN 6.6 g/dL (6.3-8.3)
--- NOTE | 2019-09-21 06:59 | EKG Report ---
Test Performed on : 09/21/2019 06:35:21 AM Test Reason : Elevated troponins Blood Pressure : / mmHG Vent. Rate : 082 BPM Atrial Rate : 082 BPM P-R Int : 156 ms QRS Dur : 114 ms QT Int : 428 ms P-R-T Axes : 010 062 139 degrees QTc Int : 500 ms Normal sinus rhythm. Marked ST abnormality, possible inferior subendocardial injury Prolonged QT Abnormal ECG When compared with ECG of 20-SEP-2019 09:42, (Unconfirmed) QT has shortened Confirmed by Kaye GOLDSTEIN, Brooks ([id number]) on 09/21/2019 10:36:52 AM
--- NOTE | 2019-09-21 07:08 | Diag Imaging Result Doc PS360 ---
CHEST-PORTABLE - 09/21/2019 INDICATION: pneumonia COMPARISON: 09/20/2019 FINDINGS: There has been slight improvement in the extensive bilateral heterogeneous alveolar infiltrates. Heart size remains normal. No pneumothorax or pleural effusion. IMPRESSION: Slight improvement from prior. Electronically signed by Edmond Howard 09/21/2019 7:06 AM
[2019-09-21] MEDS ORDERED: KLOR-CON PO ONE (07:30)
[2019-09-21] MEDS: HEPARIN SUBQ SCH ×2 (08:14→15:38)
[2019-09-21] MEDS: LOPRESSOR PO SCH ×2 (08:14→20:21)
[2019-09-21] MEDS: KLONOPIN PO SCH ×3 (08:14→20:21)
[2019-09-21] MEDS: ABILIFY PO SCH ×2 (08:15→20:22)
[2019-09-21] MEDS: ZYVOX 600 MG/D5W 600 MG/300 ML IVPB IV SCH ×2 (08:15→20:21)
[2019-09-21] MEDS: NORVASC PO SCH ×2 (08:15→20:21)
[2019-09-21] MEDS: TAMIFLU PO SCH ×2 (08:15→20:21)
[2019-09-21] MEDS: NEURONTIN PO SCH ×3 (08:15→20:21)
[2019-09-21] MEDS: AZACTAM 1 GM in NS 50 ML IV SCH ×2 (08:15→15:37)
[2019-09-21] MEDS: TYLENOL PO PRN (13:50)
[2019-09-21] MEDS: ASPIRIN PO SCH (15:38)
--- NOTE | 2019-09-21 16:57 | PULMONOLOGY PROGRESS NOTE ---
DATE: 09/21/2019 SUBJECTIVE: The patient is awake, alert, and conversant. He was on the CPAP device last night but is back on a Venturi mask. He reports he feels a little bit better. OBJECTIVE: Vital Signs: Maximum temperature in the last 24 hours is 99.7 degrees, blood pressure 105/55, heart rate 73, respiratory rate 22, oxygen saturation 94%. HEENT: Pupils are equal and reactive. Oropharynx appears clear. Neck: Supple. Chest: Reveals diffuse bilateral rhonchi. Cardiac: S1-S2. Abdomen: Soft. Extremities: Without edema. LABORATORIES: Chest x-ray reveals slight decrease in diffuse bilateral infiltrates. Arterial blood gas reveals a pH 7.46, pCO2 of 44, pO2 of 144. White blood count 7.10, hemoglobin 13.8, platelet count 165,000 sodium 140, potassium 3.0, chloride 97, bicarbonate 27, BUN 17, creatinine 1.7. Troponin is 0.618. Microbiology reveals no new data. IMPRESSION: A 59-year-old with: 1. Influenza pneumonia. 2. Acute hypoxemic respiratory failure. 3. Type 2 myocardial ischemia. 4. Chronic renal insufficiency. DISCUSSION: 59-year-old with problems outlined above. Clinically, he appears to be stable to marginally improve. PLAN: 1. Continue Tamiflu and broad-spectrum antibiotics. Consider discontinuing antibiotics soon with continued clinical improvement. 2. Continue oxygen and CPAP/BiPAP as necessary for respiratory failure. 3. Encourage yearly influenza vaccines. 4. Anticipate cardiac workup for ischemia with clinical improvement. 5. Consider transfer out of the ICU tomorrow with clinical improvement. cc: Paul Springer MD
--- NOTE | 2019-09-21 18:15 | PROGRESS NOTE ---
DATE: 09/21/2019 SUBJECTIVE: The patient is resting comfortably in bed. He states that he feels a lot better today. OBJECTIVE: Vital Signs: Temperature 99.2 degrees, blood pressure 135/73, heart rate 82, respirations 20, O2 saturation is 94% on 3 L nasal cannula. Intake 1.7 L. Output 1.9 L. General: This is a chronically ill-appearing, elderly male lying in bed, in no acute distress. Heart: S1, S2. Normal. Lungs: Equal air entry bilaterally. No wheezing. No rales. Abdomen: Positive bowel sounds. Soft, nontender, nondistended. Extremities: No edema. No cyanosis. Neurologic: The patient is alert and oriented x4. LABS: White blood cell count 7, hemoglobin 13, hematocrit 43, platelets 165,000. Sodium 140, potassium 3, chloride 97, CO2 27, BUN 17, creatinine 1.7, glucose 134. AST 55, ALT 27. Chest x-ray shows improvement from prior. ASSESSMENT AND PLAN: 1. Acute hypoxemic respiratory failure. Continue to treat the underlying infection. 2. Pneumonia with influenza. Continue on the current antibiotic and Tamiflu regimen. The patient is slowly improving. 3. Chronic kidney disease stage 3. Stable. 4. Hypertension. Continue on the current antihypertensive regimen. 5. NSTEMI. Continue on the current treatment regimen as directed by the chamber magistrate. The patient will require further workup once his infection has cleared. 6. Diabetes mellitus type 2. Continue on the current insulin regimen. 7. Anxiety disorder. Continue on Klonopin. 8. Deep vein thrombosis prophylaxis. Continue on heparin. cc: Yoli Morris MD MTDD
[2019-09-22] MEDS: HEPARIN SUBQ SCH ×3 (00:34→15:23)
[2019-09-22] MEDS: AZACTAM 1 GM in NS 50 ML IV SCH ×4 (00:35→16:44)
[2019-09-22] MEDS: DUONEB (A & A) INH SCH ×4 (03:13→21:47)
[2019-09-22] MEDS: HUMULIN R SUBQ SCH ×4 (06:42→21:05)
--- NOTE | 2019-09-22 07:44 | EKG Report ---
Test Performed on : 09/19/2019 8:30:29 PM Test Reason : ER Blood Pressure : / mmHG Vent. Rate : 099 BPM Atrial Rate : 099 BPM P-R Int : 168 ms QRS Dur : 126 ms QT Int : 398 ms P-R-T Axes : 000 046 070 degrees QTc Int : 510 ms Normal sinus rhythm. Possible Left atrial enlargement Nonspecific intraventricular block Marked ST abnormality, possible anterior subendocardial injury Abnormal ECG No previous ECGs available Confirmed by Hank Guan MD ([id number]), continuity editor Roselia Snowden ([id number]) on 10/30/2019 12:37:50 PM
[2019-09-22 08:17] LABS: BASO# 0.02 X1000 (0.0-0.2); BASO% 0.2 % (0.0-0.8); EOS% 1.2 % (0.0-10.0); HEMATOCRIT 45.3 % (42.0-52.0); HEMOGLOBIN 14.5 g/dL (14.0-18.0); IMM GRAN# 0.02 X1000 (0.0-0.04); IMM GRAN% 0.2 % (0.0-0.5); LYMPH# 1.84 X1000 (1.2-3.4); LYMPH% 22.6 % (20.5-51.1); MCH 28.7 PG (27-31); MCV 89.5 FL (81-99); MONO% 7.4 % (1.7-9.3); MPV 10.8 FL (7.4-10.4); NEUT# 5.55 X1000 (1.4-6.5); NEUT% 68.4 % (42.2-75.2); PLT 177 X1000 (130-400); RBC 5.06 XMIL (4.7-6.1); WBC 8.13 X1000 (4.8-10.8)
[2019-09-22] MEDS: ZYVOX 600 MG/D5W 600 MG/300 ML IVPB IV SCH ×2 (08:19→21:05)
[2019-09-22] MEDS: ABILIFY PO SCH ×2 (08:20→21:04)
[2019-09-22] MEDS: KLONOPIN PO SCH ×3 (08:21→21:05)
[2019-09-22] MEDS: TAMIFLU PO SCH ×2 (08:21→21:05)
[2019-09-22] MEDS: LOPRESSOR PO SCH ×2 (08:21→21:05)
[2019-09-22] MEDS: ASPIRIN PO SCH (08:21)
[2019-09-22] MEDS: NORVASC PO SCH ×2 (08:22→21:05)
[2019-09-22] MEDS: NEURONTIN PO SCH ×3 (08:22→21:05)
[2019-09-22] MEDS: MORPHINE IV PRN ×3 (08:38→21:11)
[2019-09-22] MEDS: TYLENOL PO PRN ×2 (08:38→21:11)
[2019-09-22 08:56] LABS: CALCIUM 8.5 mg/dL (8.8-10.2); CREATININE 1.7 mg/dL (0.7-1.2); MAGNESIUM 1.9 mg/dL (1.5-2.7); POTASSIUM 3.7 mmol/L (3.5-5.1)
--- NOTE | 2019-09-22 10:18 | PULMONOLOGY PROGRESS NOTE ---
DATE: 09/22/2019 SUBJECTIVE: The patient is awake, alert, and conversant. He reports he feels better than yesterday. OBJECTIVE: Vital Signs: The patient has been afebrile for the last 24 hours. Blood pressure 154/93, heart rate 94, respiratory rate 24 oxygen saturation 93% on 3 L per nasal cannula. HEENT: Pupils are equal and reactive. Oropharynx appears clear. Neck: Supple. Chest: Reveals occasional crackles bilaterally. Cardiac Exam: S1-S2. Abdomen: Soft and without hepatosplenomegaly. Extremities: Without edema. LABORATORIES: Sodium 145, potassium 3.7, chloride 101, bicarbonate 30, BUN 16, creatinine 1.7. White blood count 8.13, hemoglobin 14.5, platelet count 177,000. IMPRESSION: A 59-year-old with: 1. Influenza A infection and pneumonia. 2. Acute hypoxemic respiratory failure with decreasing oxygen requirements. 3. Elevated troponin levels. 4. Chronic renal insufficiency. DISCUSSION: A 59-year-old with problems outlined above. Clinically, he appears to be improving. The patient did have an elevation in troponin and that evaluation will be pending improvement in his pulmonary status. Up to 3% of patients with influenza A will have an elevated troponin level and this may be more viral than actually vascular related. PLAN: 1. Continue Tamiflu and broad-spectrum antibiotics. 2. Follow up chest x-ray tomorrow. 3. Wean oxygen as tolerated. 4. Encourage yearly influenza vaccine. 5. Anticipate cardiac workup for ischemia as outlined by Dr. Chawla. cc: Paul Springer MD
--- NOTE | 2019-09-22 15:45 | PROGRESS NOTE ---
DATE: 09/22/2019 SUBJECTIVE: The patient is resting comfortably in bed. He states that he feels a lot better today, is hoping to move to a room. OBJECTIVE: Vital Signs: Temperature 99 degrees, blood pressure 144/70, heart rate 86, respirations 18, O2 saturation 92% on 3 L nasal cannula. Intake 2.1 L, output 1.6 L. General: This is an elderly male lying in bed in no acute distress. Heart: S1, S2 normal. Regular rate and rhythm. Lungs: Equal air entry bilaterally. No wheezing. No rales. Abdomen: Positive bowel sounds. Soft, nontender, nondistended. Extremities: No edema, no cyanosis. Neurologic: The patient is alert and oriented x3. LABS: Reviewed. ASSESSMENT AND PLAN: 1. Acute hypoxemic respiratory failure. Continue with the current treatment regimen. 2. Pneumonia with influenza. Continue with antibiotic therapy and Tamiflu. 3. Chronic kidney disease stage 3. Stable. 4. NSTEMI. Continue with the current workup as directed by the composition floor setter. 5. Diabetes mellitus type 2. Continue on the current insulin regimen. 6. Anxiety disorder. Continue on Klonopin. 7. Deep vein thrombosis prophylaxis. Continue on heparin. 8. The patient will be transferred to the medical floor and physical therapy will be consulted. cc: Yoli Morris MD MTDD
[2019-09-23] MEDS: AZACTAM 1 GM in NS 50 ML IV SCH ×4 (00:08→23:20)
[2019-09-23] MEDS: HEPARIN SUBQ SCH ×4 (00:08→23:20)
[2019-09-23] MEDS: DUONEB (A & A) INH SCH ×4 (03:49→21:04)
[2019-09-23] MEDS: HUMULIN R SUBQ SCH ×4 (06:01→20:11)
--- NOTE | 2019-09-23 07:13 | Diag Imaging Result Doc PS360 ---
CHEST-PORTABLE - 09/23/2019 INDICATION: abnormal exam COMPARISON: 09/21/2019 FINDINGS: There has been significant improvement in the heterogeneous central infiltrates. Heart size is normal. No pneumothorax or pleural effusion. IMPRESSION: Significant improvement in the diffuse bilateral infiltrates. Electronically signed by Edmond Howard 09/23/2019 7:10 AM
[2019-09-23] MEDS: MORPHINE IV PRN ×3 (08:01→20:09)
[2019-09-23] MEDS: TAMIFLU PO SCH ×2 (08:06→20:09)
[2019-09-23] MEDS: KLONOPIN PO SCH ×3 (08:07→20:09)
[2019-09-23] MEDS: NORVASC PO SCH ×2 (08:07→20:09)
[2019-09-23] MEDS: ABILIFY PO SCH ×2 (08:07→20:09)
[2019-09-23] MEDS: ASPIRIN PO SCH (08:07)
[2019-09-23] MEDS: NEURONTIN PO SCH ×3 (08:07→20:09)
[2019-09-23] MEDS: LOPRESSOR PO SCH ×3 (08:08→20:09)
[2019-09-23] MEDS: ZYVOX 600 MG/D5W 600 MG/300 ML IVPB IV SCH ×2 (08:09→20:08)
--- NOTE | 2019-09-23 08:24 | EKG Report ---
Test Performed on : 09/23/2019 06:02:04 AM Test Reason : dyspnea Blood Pressure : / mmHG Vent. Rate : 084 BPM Atrial Rate : 084 BPM P-R Int : 170 ms QRS Dur : 122 ms QT Int : 360 ms P-R-T Axes : -03 079 186 degrees QTc Int : 425 ms Normal sinus rhythm. Cannot rule out Inferior infarct , age undetermined ST & T wave abnormality, consider anterolateral ischemia Abnormal ECG When compared with ECG of 21-SEP-2019 06:35, T wave inversion now evident in Inferior leads QT has shortened Confirmed by Kaye GOLDSTEIN, Brooks ([id number]) on 09/25/2019 8:31:09 AM
[2019-09-23 08:29] LABS: CREATININE 1.6 mg/dL (0.7-1.2); POTASSIUM 3.2 mmol/L (3.5-5.1)
[2019-09-23 08:30] LABS: CHOLESTEROL 136 mg/dL (0-200); HDL 29 mg/dL (35-55); LDL 68 mg/dL; MAGNESIUM 1.9 mg/dL (1.5-2.7); TRIGLYCERIDES 196 mg/dL (39-160); VLDL 39 mg/dL
[2019-09-23 12:15] LABS: URINE SOURCE VOIDED
[2019-09-23 12:37] LABS: BILIRUBIN URINE NEGATIVE (NEGATIVE); BLOOD URINE SMALL (NEGATIVE); COLOR YELLOW; GLUCOSE URINE >1000 mg/dL (NEGATIVE); KETONE URINE NEGATIVE (NEGATIVE); LEUKOCYTES URINE NEGATIVE (NEGATIVE); NITRITE URINE NEGATIVE (NEGATIVE); PH URINE 6.5; PROTEIN URINE 300 mg/dL (NEGATIVE); SP GRAVITY URINE 1.013; TURBIDITY URINE CLEAR (CLEAR); UROBILINOGEN URINE 3 mg/dL (NORMAL)
[2019-09-23 12:39] LABS: UR EPITHELIAL CELLS <10 /HPF (<10); URINE BACTERIA NEGATIVE /HPF; URINE RBC <10 /HPF (<10); URINE WBC <10 /HPF (<10)
[2019-09-23 13:26] LABS: UR CREAT RANDOM 58.7 mg/dL (14-26)
--- NOTE | 2019-09-23 13:33 | NEPHROLOGY CONSULTATION ---
DATE: 09/23/2019 REASON FOR CONSULTATION: Chronic kidney disease requiring left heart catheterization. HISTORY OF PRESENT ILLNESS: Mr. Saravia is a 59-year-old man with diabetes, hypertension, and a seizure disorder. He does not have diabetic nephropathy as far as he is aware. He does have neuropathy but no retinopathy. He follows with Dr. Balaji Grey for primary care. He came to the Emergency Room with URI symptoms. He had a positive influenza A screening test and was admitted to the hospital and treated with Tamiflu. Additionally, his lab data supported the diagnosis of acute coronary syndrome. Cardiology has been involved and feels that he may need a left heart catheterization to define his status. On presentation his creatinine was 1.8. It is 1.6 today. Normal urine output. Shortness of breath and cough is improving. PAST MEDICAL HISTORY: As above. HOME MEDICATIONS: Include: Clonidine, metoprolol, clonazepam, aripiprazole, dextroamphetamine/amphetamine, duloxetine, insulin, gabapentin, and Abilify. ALLERGIES: Penicillin. SOCIAL HISTORY: . Lives with his . No alcohol or tobacco. FAMILY HISTORY: Otherwise, negative. REVIEW OF SYSTEMS: Otherwise, negative. PHYSICAL EXAMINATION: Vital Signs: Blood pressure is 168/83, heart rate 81, and respirations 18, and temperature 99.5. General: Middle-aged man sitting up in bed in no acute distress. Skin: Warm and dry. HEENT: Conjunctivae are pink. Pupils are equal. Oropharynx is clear. Neck: Supple. Trachea is midline. Neck vein distention is not present. Cardiovascular: PMI is nonpalpable. Regular rate and rhythm. No murmurs, rubs, or gallops. Lungs: Equal excursion and equal breath sounds. No crackles or wheezes. No accessory muscle use or retractions. Abdomen: Soft and nontender. Bowel sounds are present. Extremities: Trace edema. No clubbing or cyanosis. Neurological: Grossly nonfocal. IMPRESSION: Abnormal kidney function. We do not have any recent data. Last creatine is from 2014 at which time it was 1.1. Urinalysis with protein, glucose, and blood. We will repeat these. He needs renal imaging. With regard to his risk for left heart catheterization, I counseled the patient and family regarding the relationship between IV contrast administration and renal injury. His risk of acute kidney injury resulting in a need for renal replacement therapy is low. Certainly, his risk of permanent renal replacement therapy is quite low, less than 5%. As such, okay to proceed from my perspective. I have reviewed his medications and no changes are required either now or in anticipation of his left heart catheterization. cc: Floyd Singh MD
[2019-09-23 13:38] LABS: UR PROT RANDOM 299.1 mg/dL
--- NOTE | 2019-09-23 14:48 | CARDIOLOGY PROGRESS NOTE ---
DATE: 09/23/2019 CHIEF COMPLAINT: Dyspnea. SUBJECTIVE: Mr. Saravia seems to be breathing better. He is not in any distress. His chest x-ray today shows improvement on the diffuse bilateral infiltrates. OBJECTIVE: Vital signs: Blood pressure is 127/61, temperature 98.3, pulse 75, respirations 20. General: He is awake, alert, in no distress. HEENT: Unremarkable. Chest: Diminished breath sounds with occasional rales. Heart: Sounds are regular and rhythmic. No gallop or murmur. Abdomen: Nontender. Extremities: Showed no edema. Neurologic exam: Follows commands, moves all 4 extremities. BLOOD WORK: Sodium 142, potassium 3.2, BUN 15, creatinine 1.6. EKG this morning shows sinus rhythm with diffuse repolarization abnormality. IMPRESSION: 1. Patient who presented to the hospital with pneumonia, dyspnea. 2. Abnormal electrocardiogram suggesting diffuse myocardial ischemia. 3. Elevated cardiac enzymes, positive troponin level suggesting [id number] myocardial infarction. Also elevation of Pro BNP suggesting left ventricular diastolic dysfunction. Echocardiogram showed actually normal ejection fraction of 60%. 4. The patient may have a component of chronic kidney disease, creatinine is elevated. 5. Additional diagnosis: Sleep apnea on continuous positive airway pressure machine. Also history of diabetes mellitus. RECOMMENDATIONS: At this time, we will continue supportive therapy. He is being treated for flu type A. His pneumonia is resolving. Eventually once his condition is stable and he is no longer at risk of having recurrent pneumonia or being contagious, we might proceed with a heart catheterization to define his coronary anatomy and then offer revascularization if deemed to be appropriate. Will follow him. cc: Antonio Garcia MD [facility]
--- NOTE | 2019-09-23 14:55 | PULMONOLOGY PROGRESS NOTE ---
DATE: 09/23/2019 SUBJECTIVE: The patient is awake, alert, and conversant. He has a dry cough. OBJECTIVE: Vital Signs: Blood pressure 127/61, heart rate 75, respiratory rate 20, oxygen saturation 94% on 3 L per nasal cannula. HEENT: Pupils are equal and reactive. Oropharynx is clear. Neck: Is supple. Chest: Reveals occasional crackles bilaterally. Cardiac exam: S1, S2. Abdomen: Is soft. Extremities: Are without edema. LABORATORIES: No new microbiology data. Chest x-ray reveals significant improvement in bilateral infiltrates with residual changes present. IMPRESSION: A 59-year-old with 1. Influenza A infection/pneumonia. 2. Acute hypoxemic respiratory failure. 3. Renal insufficiency with decrease in creatinine to 1.6. 4. Elevated troponin levels. PLAN: 1. Continue Tamiflu. 2. Consider discontinuing antibiotics tomorrow if he continues to clinically improve. 3. Wean oxygen as tolerated. 4. Anticipate cardiac workup as outlined by Dr. Chawla. 5. Encourage yearly influenza vaccines. cc: Paul Springer MD
--- NOTE | 2019-09-23 15:01 | Diag Imaging Result Doc PS360 ---
US RENAL 2 (RETROPER) COMPLETE - 09/23/2019 INDICATION: decreased renal function TECHNIQUE: COMPARISON: None FINDINGS: There is a right renal cyst at the lower pole. This measures 2.8 x 2.8 cm. The kidneys otherwise appear normal. No hydronephrosis. The urinary bladder is normal and filled with clear urine. The right kidney measures 11.3 x 5.1 x 5.3 cm. The left kidney measures 12.6 x 5.3 x 6 cm. IMPRESSION: Benign-appearing right renal cyst. No acute disease. Electronically signed by Edmond Howard 09/23/2019 2:59 PM
--- NOTE | 2019-09-23 18:06 | PROGRESS NOTE ---
DATE: 09/23/2019 SUBJECTIVE: The patient is resting comfortably in bed. He has no complaints at this time. He still has a dry cough. OBJECTIVE: Vital Signs: Temperature 98.3, blood pressure 127/61, heart rate 75, respirations 20, O2 saturation 94% on 3 L nasal cannula. General: This is an elderly male lying in bed in no acute distress. Heart: S1, S2 normal. Regular rate and rhythm. Lungs: Equal air entry bilaterally. No wheezing. No rales. Abdomen: Positive bowel sounds. Soft, nontender, nondistended. Extremities: No edema. No cyanosis. Neurologic: The patient is alert and oriented x3. LABS: Sodium 142, potassium 3.2, chloride 100. CO2 is 30, BUN 15, creatinine 1.6, glucose 154. Magnesium 1.9, calcium 8. ASSESSMENT AND PLAN: 1. Acute hypoxemic respiratory failure. Continue to try and wean the patient off of supplemental oxygen. 2. Pneumonia with influenza. Continue on the current treatment regimen. Management as per Dr. Springer. 3. Chronic kidney disease. Nephrology has been consulted. 4. Diabetes mellitus type 2. Continue on the current insulin regimen. 5. Anxiety disorder. Continue on Klonopin. 6. NSTEMI. The patient is scheduled to undergo heart catheterization this coming week. Further management as per the line and frame poler. 7. Deep vein thrombosis prophylaxis. Continue on heparin. cc: Yoli Morris MD MTDD
[2019-09-24] MEDS: AZACTAM 1 GM in NS 50 ML IV SCH ×3 (01:05→17:31)
[2019-09-24] MEDS: DUONEB (A & A) INH SCH ×4 (03:22→22:08)
[2019-09-24] MEDS: HUMULIN R SUBQ SCH ×4 (06:06→20:55)
[2019-09-24 08:01] LABS: ALBUMIN 2.8 g/dL (3.5-5.0); CALCIUM 8.1 mg/dL (8.8-10.2); CREATININE 1.6 mg/dL (0.7-1.2); PHOSPHORUS 2.7 mg/dL (2.7-4.5); POTASSIUM 3.4 mmol/L (3.5-5.1)
[2019-09-24] MEDS: NEURONTIN PO SCH ×3 (08:12→20:52)
[2019-09-24] MEDS: NORVASC PO SCH ×2 (08:12→20:52)
[2019-09-24] MEDS: KLONOPIN PO SCH ×3 (08:12→20:52)
[2019-09-24] MEDS: HEPARIN SUBQ SCH ×2 (08:12→17:29)
[2019-09-24] MEDS: ABILIFY PO SCH ×2 (08:14→20:52)
[2019-09-24] MEDS: ASPIRIN PO SCH (08:15)
[2019-09-24] MEDS: LOPRESSOR PO SCH ×3 (08:15→20:51)
[2019-09-24] MEDS: TAMIFLU PO SCH ×2 (08:15→20:52)
[2019-09-24] MEDS: MORPHINE IV PRN ×2 (08:24→20:53)
[2019-09-24] MEDS: ZYVOX 600 MG/D5W 600 MG/300 ML IVPB IV SCH ×2 (08:36→20:51)
[2019-09-24] MEDS ORDERED: KLOR-CON PO ONE (08:56)
[2019-09-24] MEDS: NORCO-5 PO PRN (12:13)
[2019-09-24] MEDS: MUCOMYST 20% PO SCH ×2 (14:40→20:52)
--- NOTE | 2019-09-24 16:45 | CARDIOLOGY PROGRESS NOTE ---
DATE: 09/24/2019 CHIEF COMPLAINT: Abnormal cardiac enzymes, shortness of breath. SUBJECTIVE: The patient continues to improve. He is not having any major discomfort. Breathing is getting better. OBJECTIVE: Vital signs: Blood pressure 135/66, temperature 97.9, pulse 68, respirations 12. He is awake, alert, oriented, in no distress. HEENT unremarkable. Chest shows diminished breath sounds bilaterally. Heart sounds regular and rhythmic, no murmurs or gallops. His abdomen is nontender. Extremities showed no edema. Neurologic: Follows commands, moves all extremities. LABORATORY DATA: His blood work today sodium 144, potassium 3.4, BUN 15, creatinine 1.6, albumin is 2.8. IMPRESSION: 1. Patient who presented with respiratory complaints, shortness of breath, cough. He turned out to have pneumonitis and positive influenzae type A. 2. Non-ST elevation myocardial infarction. 3. Abnormal electrocardiogram. 4. Chronic kidney disease. 5. Long-term diabetes mellitus type 2. 6. History of sleep apnea syndrome. RECOMMENDATIONS: At this time, the patient has been advised to pursue heart catheterization. Benefits and complications were discussed. We are going to put him on IV bicarbonate, give Mucomyst to prepare him for the procedure. Cortes Nascimento MD will probably be the gear grinding machine operator on September 25. cc: Antonio Garcia MD
[2019-09-24] MEDS ORDERED: POTASSIUM CHLORIDE 20% LIQUID PO ONE (17:00)
--- NOTE | 2019-09-24 18:16 | PULMONOLOGY PROGRESS NOTE ---
DATE: 09/24/2019 SUBJECTIVE: The patient is awake, alert, and conversant. He reports he feels well. He denies cough or sputum production. He denies chest pain. OBJECTIVE: Vital Signs: The patient has been afebrile for the last 24 hours. Blood pressure 145/82, heart rate 71, respiratory rate 18, oxygen saturation 98% HEENT: HEENT: Pupils are equal and reactive. Oropharynx appears clear. Neck: Neck is supple. Chest: Chest reveals good air entry bilaterally with faint crackles in the bases. Cardiac Exam: S1-S2. Abdomen: Abdomen is soft without hepatosplenomegaly. Extremities: Without edema. LABORATORIES: No new CBC today. Chemistries: Sodium 144, potassium 3.4, chloride 102, bicarbonate 30, BUN 15, creatinine 1.6. IMPRESSION: A 59-year-old with 1. Influenza A infection and pneumonia. 2. Acute hypoxemic respiratory failure. 3. Chronic renal insufficiency. 4. Elevated troponin levels associated with his acute illness. PLAN: 1. Complete Tamiflu today. The patient can be removed from isolation and is no longer considered infectious. 2. Followup chest x-ray tomorrow. Okay to discontinue antibiotics from a pulmonary standpoint if chest x-ray continues to improve. 3. Wean oxygen as tolerated. 4. Anticipate cardiac catheterization or stress test prior to discharge. cc: Paul Springer MD
[2019-09-24] MEDS: SODIUM BICARBONATE 8.4% 150 MEQ in STERILE WATER INJ. 1,000 ML IV SCH (18:49)
--- NOTE | 2019-09-24 21:38 | PROGRESS NOTE ---
DATE: 09/24/2019 SUBJECTIVE: The patient is resting comfortably in bed. He has no complaints at this time. OBJECTIVE: Vital Signs: Temperature 98.1 degrees, blood pressure 166/84, heart rate 82, respirations 16, O2 saturations 97% on 3 L nasal cannula. General: This is a chronically ill- appearing, elderly male lying in bed in no acute distress. Heart: S1, S2 normal. Regular rate and rhythm. Lungs: Equal air entry bilaterally. No wheezing. No rales. Abdomen: Positive bowel sounds. Soft, nontender, nondistended. Extremities: No edema, no cyanosis. Neurologic: The patient is alert and oriented x4. LABS: Sodium 144, potassium 3.4, chloride 102, CO2 of 30, BUN 15, creatinine 1.6, glucose 167. ASSESSMENT AND PLAN: 1. Acute hypoxemic respiratory failure. We will continue to try and wean the patient off of supplemental oxygen. 2. Pneumonia with influenza. Improved. We will order a chest x-ray to be done tomorrow. 3. Elevated troponin. A heart catheterization is planned for this week. Further recommendations to follow from the visual display associate. 4. Morbid obesity. Aware. 5. Anxiety disorder. Continue on Klonopin. 6. Diabetes mellitus type 2. Continue on the current insulin regimen. 7. Hypokalemia. We will replace patient's potassium. 8. Chronic kidney disease. Stable. 9. Deep vein thrombosis prophylaxis. Continue on heparin. cc: Yoli Morris MD
[2019-09-25] MEDS: HEPARIN SUBQ SCH ×3 (00:11→16:06)
[2019-09-25] MEDS: AZACTAM 1 GM in NS 50 ML IV SCH ×3 (00:12→16:06)
[2019-09-25] MEDS: DUONEB (A & A) INH SCH ×4 (02:38→21:44)
[2019-09-25] MEDS: MORPHINE IV PRN ×3 (05:43→20:16)
[2019-09-25] MEDS: HUMULIN R SUBQ SCH ×4 (06:02→20:17)
--- NOTE | 2019-09-25 07:28 | EKG Report ---
Test Performed on : 09/25/2019 07:22:50 AM Test Reason : non ST SC Blood Pressure : / mmHG Vent. Rate : 077 BPM Atrial Rate : 077 BPM P-R Int : 172 ms QRS Dur : 124 ms QT Int : 426 ms P-R-T Axes : 006 050 097 degrees QTc Int : 482 ms Sinus rhythm. with occasional premature ventricular complexes. Nonspecific intraventricular conduction delay Nonspecific ST and T wave abnormality Abnormal ECG When compared with ECG of 23-SEP-2019 06:02, (Unconfirmed) premature ventricular complexes. are now present T wave inversion no longer evident in Inferior leads T wave inversion no longer evident in Anterolateral leads QT has lengthened Confirmed by Kaye GOLDSTEIN, Brooks ([id number]) on 09/25/2019 8:41:27 AM
[2019-09-25 07:35] LABS: HEMATOCRIT 43.1 % (42.0-52.0); MCH 28.8 PG (27-31); MCHC 32.5 g/dL (33-37); MCV 88.7 FL (81-99); MPV 10.1 FL (7.4-10.4); RBC 4.86 XMIL (4.7-6.1); RDW 13.9 % (11.5-14.5); WBC 8.79 X1000 (4.8-10.8)
[2019-09-25 07:47] LABS: INR 1.04; PROTIME 13.7 Seconds (11.0-16.0)
[2019-09-25 07:50] LABS: ALBUMIN 3.1 g/dL (3.5-5.0); CALCIUM 8.8 mg/dL (8.8-10.2); CREATININE 1.4 mg/dL (0.7-1.2); PHOSPHORUS 2.1 mg/dL (2.7-4.5); POTASSIUM 3.5 mmol/L (3.5-5.1)
--- NOTE | 2019-09-25 08:21 | Diag Imaging Result Doc PS360 ---
EXAM: CHEST-2 VIEWS INDICATION: abnormal exam TECHNIQUE: 2 views COMPARISON: 09/23/2019 FINDINGS: Bilateral infiltrates continue to improve. There is still residual infiltrate at the lower lung zones bilaterally, however. No new consolidation is identified. Cardiac silhouette is stable. IMPRESSION: Interval improvement. Electronically signed by Wolf Cohen 09/25/2019 8:19 AM
[2019-09-25] MEDS: LOPRESSOR PO SCH ×3 (09:24→20:16)
[2019-09-25] MEDS: KLONOPIN PO SCH ×3 (09:25→20:16)
[2019-09-25] MEDS: NEURONTIN PO SCH ×3 (09:25→20:15)
[2019-09-25] MEDS: ABILIFY PO SCH ×2 (09:25→20:16)
[2019-09-25] MEDS: ASPIRIN PO SCH (09:25)
[2019-09-25] MEDS: NORVASC PO SCH ×2 (09:25→20:16)
[2019-09-25] MEDS: MUCOMYST 20% PO SCH ×2 (09:26→21:41)
[2019-09-25] MEDS: ZYVOX 600 MG/D5W 600 MG/300 ML IVPB IV SCH ×2 (13:13→20:15)
[2019-09-25] MEDS: SODIUM BICARBONATE 8.4% 150 MEQ in STERILE WATER INJ. 1,000 ML IV SCH (14:11)
--- NOTE | 2019-09-25 14:50 | PROVIDER PROGRESS NOTE ---
Progress Note Subjective: Voices decreased appetite. No other uremic complaints. No shortness of breath. Objective: temperature 98.0, pulse 80, respiration 16, blood pressure 165/76, and she sat 93% on room air. General: Chronically ill appearing male lying in bed in no acute distress HEENT: normocephalic, atraumatic, pupils equal and reactive, trachea midline. Skin: warm and dry. Neck: supple, no JVD Cardiovascular: S1S2. Regular rate and rhythm. No murmurs or gallops noted. Respiratory: clear with equal air entry anteriorly Abdomen: soft, Nontender, nondistended. Bowel sounds present : non inspected Extremities: 1+ pitting edema to BLE. Neurological: alert and oriented to person, place, and time. Labs: WBC 8.79, hemoglobin 14, hematocrit 43.1, platelet count 250, sodium 144, potassium 3.5, chloride 102, carbon dioxide 32, BUN 12, creatinine 1.4. Impression: Acute on chronic kidney disease. Creatinine improving at 1.4 and close to bas jean claude. We will try and reach out to Dr. Balaji Grey for previous data. Probable diabetic nephropathy. If his heart catheter is normal, we can follow up on an outpatient basis. Blood pressure. Slightly elevated. Will monitor for now. Fluid volume. Slightly expanded. Not in any acute distress. Anemia. Stable. Electrolytes and acid base balance. Stable. Nutrition. Encouraged to eat when he is not NPO Ambulation. Up in room Medication review. Consider weaning dose of neurontin.
--- NOTE | 2019-09-25 17:33 | PROGRESS NOTE ---
DATE: 09/25/2019 SUBJECTIVE: The patient is resting comfortably in bed. He continues to have a dry cough. OBJECTIVE: Vital Signs: Temperature 98.5 degrees, blood pressure 159/80, heart rate 81, respirations 18, O2 saturation 97% on room air. General: This is an elderly male lying in bed in no acute distress. Heart: S1, S2 normal. Regular rate and rhythm. Lungs: Clear to auscultation bilaterally. Abdomen: Positive bowel sounds. Soft, nontender, nondistended. Extremities: No edema. No cyanosis. Neurologic: The patient is alert and oriented x4. LABORATORY DATA: White blood cell count 14, hemoglobin 43, platelets 250,000. INR 1. Sodium 144, potassium 3.4, chloride 102, CO2 32, BUN 12, creatinine 1.4, glucose 159, phosphorus 2.1, magnesium 1.9. ASSESSMENT AND PLAN: 1. Acute hypoxemic respiratory failure. We will continue to wean the patient off of supplemental oxygen. 2. Pneumonia with influenza A. The patient has completed therapy with Tamiflu. We will continue with antibiotic therapy. The patient appears to be improving. 3. Elevated troponin. The patient is scheduled to undergo heart catheterization today. 4. Morbid obesity. The patient has been counseled about weight loss and proper diet. 5. Diabetes mellitus type 2. Continue on current insulin regimen. 6. Acute on chronic kidney disease. Slowly improving. The patient is currently receiving sterile water with sodium bicarbonate. Nephrology is following. 7. Hypertension. Continue on the current antihypertensive regimen. 8. Deep vein thrombosis prophylaxis. Continue on heparin. cc: Yoli Morris MD MTDD
[2019-09-26] MEDS: HEPARIN SUBQ SCH ×4 (00:08→15:55)
[2019-09-26] MEDS: AZACTAM 1 GM in NS 50 ML IV SCH ×2 (00:08→08:20)
[2019-09-26] MEDS: NORCO-5 PO PRN ×2 (02:45→13:47)
[2019-09-26] MEDS: DUONEB (A & A) INH SCH ×2 (03:02→09:58)
[2019-09-26 05:46] LABS: HEMATOCRIT 39.5 % (42.0-52.0); HEMOGLOBIN 12.8 g/dL (14.0-18.0); MCH 28.7 PG (27-31); MCHC 32.4 g/dL (33-37); MCV 88.6 FL (81-99); MPV 9.9 FL (7.4-10.4); RBC 4.46 XMIL (4.7-6.1); RDW 13.4 % (11.5-14.5); WBC 9.13 X1000 (4.8-10.8)
[2019-09-26 05:49] LABS: INR 1.04; PROTIME 13.8 Seconds (11.0-16.0)
[2019-09-26 06:01] LABS: ALBUMIN 3.1 g/dL (3.5-5.0); CREATININE 1.4 mg/dL (0.7-1.2); PHOSPHORUS 2.5 mg/dL (2.7-4.5); POTASSIUM 3.7 mmol/L (3.5-5.1)
[2019-09-26] MEDS: HUMULIN R SUBQ SCH ×3 (06:10→16:45)
[2019-09-26] MEDS ORDERED: HEPARIN 1000 UNITS/NS 2,000 UNIT/1,000 ML IV.SOLN ONE (07:37)
[2019-09-26] MEDS ORDERED: NITROGLYCERIN ONE (07:39)
[2019-09-26] MEDS: MUCOMYST 20% PO SCH (08:19)
[2019-09-26] MEDS: NEURONTIN PO SCH ×2 (08:19→15:09)
[2019-09-26] MEDS: NORVASC PO SCH (08:19)
[2019-09-26] MEDS: ASPIRIN PO SCH (08:19)
[2019-09-26] MEDS: LOPRESSOR PO SCH ×2 (08:19→15:07)
[2019-09-26] MEDS: KLONOPIN PO SCH ×2 (08:19→15:09)
[2019-09-26] MEDS: ABILIFY PO SCH (08:26)
[2019-09-26] MEDS ORDERED: NS 1,000 ML ONE (09:05)
[2019-09-26] MEDS ORDERED: VERSED ONE (09:05)
[2019-09-26] MEDS ORDERED: ANESTHESIA PB SET 88 IN 5742 ONE (09:05)
[2019-09-26] MEDS ORDERED: DEMEROL ONE (09:05)
[2019-09-26] MEDS ORDERED: SODIUM CHLORIDE 0.9% 10 ML ONE (10:25)
--- NOTE | 2019-09-26 10:27 | CARDIAC CATH REPORT ---
DATE: 09/26/2019 PROCEDURES: 1. Left heart catheterization. 2. Selective bilateral coronary arteriography. 3. Left ventriculography. 4. Selective opacification of right femoral artery. Angio-Seal device was not deployed because the puncture was made at the bifurcation of the common femoral. HISTORY: Mr. Saravia is a 59-year-old male with diabetes, who came in to the hospital with pneumonia and during the course of evaluation he was found to have an abnormal EKG with elevation of troponin levels. He also has diabetes mellitus type 2 for a long time and sleep apnea syndrome. After his pneumonia and his flu got better, his forestry adviser, Dr. Chawla, recommended to pursue heart catheterization for definitive diagnosis. Benefits, risks, and complications were discussed. Because of his renal insufficiency, he was pretreated with IV bicarbonate for more than 24 hours and also oral Mucomyst. The benefits, risks, and complications were discussed with him. He understood and requested to proceed. We used Visipaque for the procedure. SUMMARY OF THE PROCEDURE: The patient came in to the cardiac solder making laborer in a fasting state. He received 1 mg of Versed and 25 mg of Demerol in divided doses. His right groin was prepped and draped in a sterile fashion, anesthetized with lidocaine 1%. A 6 Grenadian sheath was inserted into the right femoral artery following modified Seldinger technique. Using 6 Grenadian left and right Morgan catheter, the left and the right coronary artery were sequentially opacified in multiple projections. Then, the right Morgan catheter was used to opacify the left ventricle in the 60 degree SIERRA LEONEAN projection and 30 degree GOYAL projection. Cranial and caudal angulations were used. Then, the right Morgan catheter was removed, the sheath was flushed. Right femoral opacified, however, the puncture had been made at the bifurcation at the common femoral, therefore, we felt that Angio-Seal was not appropriate, and we removed the catheter manually. Hemostasis was accomplished by hand compression. The patient tolerated the procedure well without complications. SUMMARY OF HEMODYNAMIC FINDINGS: Central aortic pressure is 140/76. Left ventricular pressure is 139/8, post LV gram is 128/6, and final central aortic pressure 128/70. During the procedure, the patient received intracoronary nitroglycerin. SUMMARY OF THE ANGIOGRAPHIC FINDINGS: 1. Left main coronary artery: The vessel is anatomically normal. Divides into LAD and circumflex. 2. Left anterior descending coronary artery: The vessel shows a 40% to 50% proximal plaque followed by an additional 40% to 50% stenosis from the point of origin of the first diagonal branch, which is a small diffusely diseased vessel. The distal LAD has a caliber of about 2 mm, it appears to be suitable for bypass grafting. The diagonal shows diffuse 80% to 90% proximal stenosis. 3. Circumflex coronary artery: The circumflex coronary artery is a codominant system. At the junction of the proximal to the middle third, it shows a 70% stenosis at the point of origin of the first marginal. The second marginal in turn also shows an ostial stenosis of 70%. This is followed by an additional segment of disease of about 60% to 70%. There is an additional distal 60% to 70% terminal circumflex stenosis. 4. Right coronary artery: The right coronary artery is a codominant system. It shows diffuse disease in the order of 70% to 80% in the proximal and mid as well as distal segments. Distally, there is a good size posterior descending branch, which appears to be suitable for bypass grafting. The distal circumflex and also the second marginal branch are suitable for bypass grafting. LEFT VENTRICULOGRAM: Left ventriculogram in the 30 degree GOYAL projection and 60 degree SIERRA LEONEAN projection shows well-preserved left ventricular systolic function, ejection fraction appears to be visually in the order of 60%. OPACIFICATION OF THE RIGHT FEMORAL ARTERY: The right femoral artery is unremarkable. The puncture was made at the bifurcation, therefore, we could not deploy the Angio-Seal device. SUMMARY: This study shows: 1. Normal hemodynamics with normal LVEDP. 2. Three vessel coronary artery disease with moderately severe lesions in the LAD, in the circumflex, and also in the right coronary artery which is codominant. The PDA, the second OM, distal circumflex, and the distal LAD appear to be suitable targets for bypass grafting. 3. No mitral regurgitation, no aortic stenosis. 4. Preserved left ventricular systolic function, ejection fraction 60%. RECOMMENDATIONS: The patient will be treated medically and will be referred for consultation with cardiovascular surgeons as an outpatient. At this time given the fact that he is not having chest pain, his ejection fraction is normal, and his left ventricular end-diastolic pressure is normal, the patient may be discharged home and followup as an outpatient by Dr. Chawla and the Cardiovascular team. cc: Antonio Garcia MD
--- NOTE | 2019-09-26 10:38 | EKG Report ---
Test Performed on : 09/26/2019 10:28:40 AM Test Reason : s/p heart cath Blood Pressure : / mmHG Vent. Rate : 073 BPM Atrial Rate : 073 BPM P-R Int : 192 ms QRS Dur : 126 ms QT Int : 434 ms P-R-T Axes : 011 035 097 degrees QTc Int : 478 ms Normal sinus rhythm. Nonspecific intraventricular block Nonspecific T wave abnormality Abnormal ECG When compared with ECG of 25-SEP-2019 07:22, premature ventricular complexes. are no longer present Confirmed by Kaye GOLDSTEIN, Brooks ([id number]) on 09/26/2019 4:56:22 PM
[2019-09-26] MEDS: ZYVOX 600 MG/D5W 600 MG/300 ML IVPB IV SCH (11:15)
[2019-09-26] MEDS ORDERED: MORPHINE IV ONE (14:39)
[2019-09-26] MEDS: SODIUM BICARBONATE 8.4% 150 MEQ in STERILE WATER INJ. 1,000 ML IV SCH (15:54)
[2019-09-26 16:44] VITALS: BP 148/82
--- NOTE | 2019-09-26 16:52 | DISCHARGE SUMMARY ---
ADMISSION DATE: 09/19/2019 DISCHARGE DATE: 09/26/2019 DISCHARGE DISPOSITION: Home. DISCHARGE CONDITION: Hemodynamically stable. He is breathing well on room air. He denies any chest pain or shortness of breath. His cough has significantly improved. His coronary angiography shows triple-vessel disease and he is supposed to follow up with Cardiology outpatient for possible CABG evaluation. DISCHARGE DIAGNOSES: 1. Acute hypoxic respiratory failure due to influenza type A and bilateral multifocal pneumonia. 2. Acute kidney injury. 3. Type 2 diabetes mellitus with uncontrolled hyperglycemia. 4. Triple-vessel coronary artery disease leading to type 2 myocardial infarction. 5. Essential hypertension. OTHER DIAGNOSES: 1. History of insulin-dependent diabetes mellitus. 2. History of essential hypertension. 3. History of anxiety. 4. History of chronic pain. 5. History of seizure disorder. DISCHARGE MEDICATIONS: 1. Abilify 7.5 mg at nighttime. 2. Lantus 100 units subcutaneous at nighttime. 3. Insulin glulisine 25 units with meals. 4. Aripiprazole 15 mg daily. 5. Clonidine 0.1 mg at nighttime. 6. Duloxetine 60 mg b.i.d. 7. Dextroamphetamine amphetamine 20 mg t.i.d. 8. Gabapentin 600 mg t.i.d. 9. Clonazepam 1 mg t.i.d. 10. Aspirin 81 mg daily. 11. Metoprolol 75 mg b.i.d. 12. Amlodipine 10 mg daily. VITALS: At the time of discharge, temperature 98.1 degrees, pulse 79, respiratory rate 19, blood pressure 160/80, saturating 93% on room air. PHYSICAL EXAMINATION: General: Not in acute distress. HEENT: Oral cavity is moist. Lungs: Air entry bilaterally equal. No wheeze, rhonchi, or crackles. Cardiovascular: S1, S2 normal. No murmur, rub, or gallop. Abdomen: Soft, nontender. Extremities: No lower extremity edema. His bilateral femoral, dorsalis pedis and posterior tibial pulses are intact. He has a right groin dressing for recent heart catheterization without any hematoma formation. LABS: At the time of discharge, WBC 9.1, hemoglobin 12.8, platelet 285,000. INR 1.04. Potassium 3.7. BUN 11, creatinine 1.4. Blood glucose 176. MICROBIOLOGY: Blood culture did not have any growth. Influenza was positive for influenza A. SIGNIFICANT IMAGING DURING HOSPITAL ADMISSION: 1. Chest x-ray on September 19 had extensive bilateral pneumonia. 2. Renal ultrasound on September 23 had benign appearing right renal cyst without any acute disease. 3. Chest x-ray on September 25 had interval improvement. 4. Electrocardiogram on presentation had normal sinus rhythm, possible left atrial enlargement, nonspecific intraventricular block, marked ST abnormality, possible anterior subendocardial injury. 5. Electrocardiogram September 26 had normal sinus rhythm, nonspecific intraventricular conduction block, nonspecific T-wave abnormality. 6. Echocardiogram on 09/20/2019 had normal left ventricular ejection fraction with 60% concentric left ventricular hypertrophy. No intracardiac mass or thrombus. TROPONIN DURING HOSPITAL ADMISSION: On presentation, patient had a troponin of 0.29, which had increased over 48 hours as high as 0.655. PROCEDURES DURING HOSPITAL HOSPITALIZATION: On 09/26/2019 patient underwent cardiac catheterization which had normal hemodynamics with normal left ventricular end-diastolic pressure, triple-vessel coronary artery disease with moderately severe lesions in LAD, circumflex, right coronary artery, preserved left ventricular ejection fraction of 60%. HOSPITAL COURSE SUMMARY: Mr. Saravia is a 59-year-old man who initially presented on 09/19/2019 with chief complaints of cough, shortness of breath for which he had seen his primary care provider and was diagnosed with flu. Apparently, patient has had progressively worsening cough with shortness of breath over the last 2 to 3 days. He also had prior history of diabetes mellitus type 2. His was also diagnosed with influenza. With these complaints he went to his primary care doctor and a flu swab was performed and he was diagnosed with flu and was sent to the emergency room. In the emergency room, he got a chest x-ray which had extensive bilateral pneumonia, so the hospitalist team was consulted for further management. Considering his extensive nature of bilateral pneumonia and hypoxic respiratory failure with oxygen saturation of 74% on presentation, he was admitted to ICU and was started on oseltamivir and intravenous antibiotics and was observed in ICU. With intravenous antibiotics, his pneumonia improved. At the time of discharge, he is breathing well on room air. He has completed a course of Tamiflu and antibiotics and chest x-ray suggests improvement. He was also found to have kidney dysfunction with creatinine as high as 1.8. However, his acute kidney injury improved after intravenous fluid resuscitation and his creatinine at the time of discharge is 1.4. Nephrology was on board and suggests he may have a component of diabetic nephropathy. He was advised to have followup with his outpatient provider and Nephrology. On presentation, patient did have elevated troponins so his Cardiology team was consulted. His echocardiogram had normal ejection fraction and his electrocardiogram had a subtle difference from the previous electrocardiogram, so he was treated as type 2 myocardial infarction and was started on aspirin and he underwent left heart catheterization on September 26, which he tolerated well. He was found to have triple-vessel coronary artery disease and was advised outpatient cardiology followup for need for bypass surgery evaluation At the time of discharge, detailed discharge instructions were provided to the patient. All of his questions were satisfactorily answered. cc: Osito Calle MD
== END 2019-09-26 17:53 | disposition home or self-care (01) ==
LOC: P.ED 20:09 → SUATTDRO 20:10 → ICU 20:10 → 3N 09-22 12:12 → 2N 09-25 15:50
PROVIDERS: ATTEND Internal Medicine